=== PATIENT | female | born 1950 | race Asian ===

== ENCOUNTER → 2021-02-24 | Day surgery (SDC) | payer MEDICARE, OTHER ==
[2021-02-19 14:10] LABS: BASOPHILS # (AUTO) 0.1 (0.0-0.1); BASOPHILS % 0.9 % (0.0-1.0); EOSINOPHILS # (AUTO) 0.1 (0.0-0.4); EOSINOPHILS % 1.5 % (0.0-6.0); HEMATOCRIT 35.8 % (34.2-44.1); HEMOGLOBIN 10.5 g/dL (12.0-16.0); LYMPHOCYTES # (AUTO) 1.9 (1.0-3.2); LYMPHOCYTES % 28.2 % (18.0-39.1); MEAN CORPUSCULAR HEMOGLOBIN 18.4 pg (28-32); MEAN CORPUSCULAR HGB CONC 29.3 g/dL (31-35); MEAN CORPUSCULAR VOLUME 62.7 fL (81-99); MONOCYTES # (AUTO) 0.7 (0.2-0.8); MONOCYTES % 11.3 % (4.4-11.3); NEUTROPHILS # (AUTO) 3.8 (2.1-6.9); NEUTROPHILS % 57.9 % (38.7-80.0); PLATELET COUNT 270 x10e3/uL (140-360); RED BLOOD COUNT 5.71 x10e6/uL (3.6-5.1); RED CELL DISTRIBUTION WIDTH 17.4 % (11.7-14.4)
[2021-02-19 14:21] LABS: INR 0.88; PROTHROMBIN TIME 12.7 seconds (11.9-14.5)
[2021-02-19 14:31] LABS: ALBUMIN 3.9 g/dL (3.5-5.0); ALBUMIN/GLOBULIN RATIO 1.1 (0.8-2.0); ANION GAP 12.8 mmol/L (8-16); CREATININE, SERUM 0.8 mg/dL (0.57-1.11); POTASSIUM 4.8 mmol/L (3.5-5.1)
[~2021-02-24] VITALS: Ht 152.4 cm; Wt 59.0 kg
[~2021-02-24] MED LIST: FOLIC ACID PO; LEVOTHYROXINE50 MCG PO; LEVOTHYROXINE75 MCG PO; LIDOCAINE 1% W/EPINEPHRINE 20 ML VIAL ONE; LIDOCAINE HCL 2% LOCAL 20 ML VIAL ONE; METFORMIN HCL500 MG PO; PANTOPRAZOLE SO40 MG PO; PROTONIX20 MG PO
[2021-02-24 07:55] VITALS: BP 157/85
[2021-02-24 09:45] VITALS: BP 152/73
== END | disposition home or self-care (01) ==
LOC: CATH LAB 07:53
PROVIDERS: ATTEND Internal Medicine
DX: T82.847A Pain due to cardiac prosthetic devices, implants and grafts, initial encounter (principal); I48.91 Unspecified atrial fibrillation; Q23.3 Congenital mitral insufficiency; E11.9 Type 2 diabetes mellitus without complications; E07.9 Disorder of thyroid, unspecified; Y83.8 Other surgical procedures as the cause of abnormal reaction of the patient, or of later complication, without mention of misadventure at the time of the procedure; Z01.812 Encounter for preprocedural laboratory examination; Z20.822 Contact with and (suspected) exposure to COVID-19; Z79.84 Long term (current) use of oral hypoglycemic drugs; Z79.899 Other long term (current) drug therapy
CPT/HCPCS: 33286; 36415; 80053; 85025; 85610; J2001; U0002